=== PATIENT | male | born 1955 | race Caucasian/White ===

== ENCOUNTER 2017-07-14 01:03 | Emergency (ER) | payer MEDICAID, OTHER ==
[2017-07-14] MEDS ORDERED: niCARdipine 20MG In NaCl 20 MG/200 ML BAG ONE (01:32)
[2017-07-14 01:44] LABS: #Eosinphils 0.3 thou/uL (0.0-0.7); #Lymphocytes 2.9 thou/uL (1.20-3.40); #Monocytes 0.4 thou/uL (0.11-0.59); #Neutrophils 3.3 thou/uL (1.40-6.50); %Basophils 0.7 % (0.0-1.0); %Eosinophils 4.3 % (0.0-10.0); %Lymphocytes 41.8 % (21.0-51.0); %Neutrophils 47.2 % (42.0-75.0); Hemoglobin 14.7 g/dL (14.0-18.0); Mean Corpuscular HGB CONC 33.5 g/dL (32.0-36.0); Mean Corpuscular Hemoglobin 31.3 pg (27.0-31.0); Mean Corpuscular Volume 93.6 fl (80.0-94.0); Platelet Count 240 thou/uL (130-400); RBC Distribution Width 13.4 % (11.5-14.5); Red Blood Cell (RBC) Count 4.68 mill/uL (4.70-6.10)
[2017-07-14 02:06] LABS: ALT (SGPT) 29 U/L (8-55); AST (SGOT) 24 U/L (5-34); Alkaline Phosphatase 68 U/L (40-150); Anion Gap 7 mmol/L (10-20); BUN (Urea Nitrogen) 18 mg/dL (8.4-25.7); Bilirubin, Total 0.2 mg/dL (0.2-1.2); CK (CPK) 122 U/L (30-200); Calc. Creatinine Clearance 0 mL/min (70-130); Calcium 9.5 mg/dL (7.8-10.44); Carbon Dioxide 30 mmol/L (22-29); Chloride 103 mmol/L (98-107); Estimated GFR-MDRD 57; Globulin 4.2 g/dL (2.4-3.5); Glucose 130 mg/dL (70-105); Potassium 3.9 mmol/L (3.5-5.1); Protein, Total 8.2 g/dL (6.0-8.3); Sodium 136 mmol/L (136-145)
[2017-07-14 02:09] LABS: CKMB 2.9 ng/mL (0-6.6); Troponin I Less than 0.010 ng/mL (< 0.028)
--- NOTE | 2017-07-14 02:40 | PDOC.FPRHP ---
- History of Present Illness Chief Complaint: Chest Pain History of Present Illness: Pt seen on 07/14 @ 0315 61 yo M w subjective cardiac hx including 14 stents, 1 CT, and "strokes" in addition to bipolar disorder, schizophrenia and HTN presents with 1 day h/o of episodic chest pain which he describes as sharp substernal and radiating to the left arm with associated SOB, diaphoresis and numbness in left arm. In the ED he was found to have elevated BP @ 231/131. Pt reports that is about what he normally runs and has run as high as 300 systolic in the past. He states he is on numerous BP medications and has had numerous catheterizations and stress tests in the past. He states he can no longer get stress tests because "[he] three times" last time they did a cardiac stress. On review of records, pt had a cath in 2006 which showed mild to moderate disease. Prior to the cath the pt had a stress test performed and he began complaining of severe chest pain at that time. After, the pt was taken to cath and found to have mild to moderate cad and the cp was thought to be non-cardiac in nature. There is no record of cardiac stents from review of records in 2007. Heart score 6. Unknown current medications and dosages. ED Course: 4mg IV morphine 324mg Aspirin Cardene drip @ 5mg/hr - Allergies/Adverse Reactions Allergies Allergy/AdvReac Type Severity Reaction Status Date / Time No Known Drug Allergies Allergy Verified 07/14/17 03:35 - Home Medications Medication Instructions Recorded Confirmed Type No Known [No Known] 07/14/17 07/14/17 History - History PMHx: Prior CVA, prior CT, HTN, bipolar, schizophrenia PSHx: None FHx: Paternal DMII Social: >50 pack year history, prior alcohol, prior drug use - Review of Systems General: denies: fever/chills, night sweats Eyes: reports: vision changes. denies: eye pain ENT: denies: nasal congestion, rhinorrhea Respiratory: reports: shortness of breath. denies: cough, congestion Cardiovascular: reports: chest pain. denies: palpitation, edema Gastrointestinal: reports: nausea. denies: vomiting, diarrhea, constipation, abdominal pain Genitourinary: reports: polyuria. denies: dysuria Skin: denies: rashes, jaundice Musculoskeletal: denies: pain, swelling, arthritis/arthralgias Neurological: reports: numbness, weakness, other (pre-syncope). denies: syncope - Vital signs BP: 231/131 HR: 69 RR: 22 Tmax: 98.4 Pox: 96% on RA Wt: 94Kg - Physical Exam Constitutional: NAD, awake, alert and oriented HEENT: normocephalic and atraumatic, PERRLA, EOMI, no scleral icterus, grossly normal vision, MMM, oropharynx clear, other (conjunctival injection, deaf lt ear ) Neck: supple, trachea midline, no LAD, no JVD, no thyromegaly, no bruits Chest: other (ttp left sternal border) Heart: RRR, normal S1/S2, no murmurs/rubs/gallops, pulses present, no edema Lungs: CTAB, no respiratory distress, good air movement, no rales/rhonchi, no wheezing, no retractions Abdomen: soft, non-tender, bowel sounds present, no masses/distention Musculoskeletal: normal tone, ROM grossly normal Neurological: no focal deficit Skin: good turgor, capillary refill <2 seconds, no jaundice Heme/Lymphatic: no purpura, no petechia Psychiatric: other (agitated, poor judgement) FMR H&P: Results - Labs Result Diagrams: 07/14/17 01:25 07/14/17 01:25 Lab results: WBC 7.0 thou/uL (4.8-10.8) 07/14/17 01:25 Hgb 14.7 g/dL (14.0-18.0) 07/14/17 01:25 Hct 43.8 % (42.0-52.0) 07/14/17 01:25 MCV 93.6 fl (80.0-94.0) 07/14/17 01:25 Plt Count 240 thou/uL (130-400) 07/14/17 01:25 Neutrophils % 47.2 % (42.0-75.0) 07/14/17 01:25 Sodium 136 mmol/L (136-145) 07/14/17 01:25 Potassium 3.9 mmol/L (3.5-5.1) 07/14/17 01:25 Chloride 103 mmol/L (98-107) 07/14/17 01:25 Carbon Dioxide 30 mmol/L (22-29) H 07/14/17 01:25 BUN 18 mg/dL (8.4-25.7) 07/14/17 01:25 Creatinine 1.29 mg/dL (0.6-1.3) 07/14/17 01:25 Glucose 130 mg/dL (70-105) H 07/14/17 01:25 Calcium 9.5 mg/dL (7.8-10.44) 07/14/17 01:25 Total Bilirubin 0.2 mg/dL (0.2-1.2) 07/14/17 01:25 AST 24 U/L (5-34) 07/14/17 01:25 ALT 29 U/L (8-55) 07/14/17 01:25 Alkaline Phosphatase 68 U/L (40-150) 07/14/17 01:25 Creatine Kinase 122 U/L (30-200) 07/14/17 01:25 CK-MB (CK-2) 2.9 ng/mL (0-6.6) 07/14/17 01:25 B-Natriuretic Peptide 24.4 pg/mL (0-100) 07/14/17 01:25 Serum Total Protein 8.2 g/dL (6.0-8.3) 07/14/17 01:25 Albumin 4.0 g/dL (3.5-5.0) 07/14/17 01:25 Laboratory Tests 07/14/17 01:25 Troponin I Less than 0.010 - EKG Interpretation EKG: First degree block, non-specific st changes, rate 74 - Radiology Interpretation Chest x-ray Status: image reviewed by me (No widening of mediastinum. NAD.) FMR H&P: A/P - Problem List (1) Hypertensive urgency Current Visit: Yes Status: Acute Code(s): I16.0 - HYPERTENSIVE URGENCY (2) Chest pain, atypical Current Visit: Yes Status: Acute Code(s): R07.89 - OTHER CHEST PAIN - Plan 1) HTN Urgency: - admit to ICU - cont cardene drip, titrate to pressure <160/110 - continuous cardiac monitoring - NPO - Consult cardiology in AM - Initial trop negative, will trend X3 2) Atypical chest pain, suspected - vs unstable angina - Intial troponin was negative and pt has had symptoms for over 1 day that are episodic. Additionally, pt is ttp @ left sternal border. EKG negative for ST elevation, he reports no relief with nitro and according to his niece has several BP readings in that range when taken at home. Additionally, pt still reports 9/10 pain while resting comfortably in bed, not diaphoretic and has a history of drug seeking behavior from prior documents. Based on this, will hold off on anticoag use until we discuss with cardiology in the AM. 3) Tobacco abuse - nicotine patch - no desire to quit and states he will not quit Disposition/LOS: guarded, >/= 2 days symptomatic meds will be provided FMR H&P: Upper Level - Plan Date/Time: 07/14/17 0237 I, [], have evaluated this patient and agree with findings/plan as outlined by engineer internship resident. Pertinent changes/additions are listed here.
[2017-07-14] MEDS ORDERED: Acetaminophen 325 MG TAB PO PRN (04:09)
[2017-07-14] MEDS ORDERED: Nitroglycerin 0.4 MG TAB (25 Tab Bottle) PO PRN (04:09)
[2017-07-14] MEDS ORDERED: Ondansetron HCl/PF 4 MG/2 ML Vial IVP PRN (04:09)
[2017-07-14] MEDS ORDERED: Ondansetron ODT 4 MG TAB PO PRN (04:09)
--- NOTE | 2017-07-14 08:30 | RAD ---
PORTABLE CHEST 1 VIEW: Date: 07/14/17 Time: 0130 hours HISTORY: Chest pain. Hypertension. FINDINGS/IMPRESSION: Comparison made with exam of 03/27/08. The heart size is normal. No confluent areas of consolidation, pneumothoraces, stefan pulmonary edema, or large effusions are seen. POS: [facility]
[2017-07-14] MEDS ORDERED: Famotidine/PF 20 mg/2ml Vial SLOW IVP SCH (09:00)
[2017-07-14] MEDS ORDERED: Enoxaparin Sodium 40 MG/0.4 ML SYRINGE SC SCH (09:00)
[2017-07-14] MEDS ORDERED: Nicotine 14 MG PATCH TD SCH (09:00)
[2017-07-14] MEDS ORDERED: Aspirin 325 MG TAB PO SCH (09:00)
--- NOTE | 2017-07-20 15:36 | EKG ---
Test Reason : Blood Pressure : / mmHG Vent. Rate : 060 BPM Atrial Rate : 060 BPM P-R Int : 220 ms QRS Dur : 092 ms QT Int : 384 ms P-R-T Axes : 072 -26 040 degrees QTc Int : 384 ms Sinus rhythm with 1st degree A-V block Nonspecific T wave abnormality Abnormal ECG Confirmed by PAULA VIVEROS, CECY Mendoza ([id number]), map editor TERELL LINO ([id number]) on 07/20/2017 3:36:33 PM Referred By: Confirmed By:CECY MITCHELL MD
== END 2017-07-14 04:15 | disposition left against medical advice (07) ==
LOC: ERS 01:03
DX: I10 Essential (primary) hypertension (principal); I25.2 Old myocardial infarction; F41.9 Anxiety disorder, unspecified; F31.9 Bipolar disorder, unspecified; F20.9 Schizophrenia, unspecified; F43.10 Post-traumatic stress disorder, unspecified; F17.200 Nicotine dependence, unspecified, uncomplicated; Z79.82 Long term (current) use of aspirin; Z79.899 Other long term (current) drug therapy; Z79.891 Long term (current) use of opiate analgesic
CPT/HCPCS: 71045; 80053; 82553; 83880; 84484; 85025; 93005; 96365; 96366; 96374; 99406; J2270

== ENCOUNTER 2017-08-14 04:51 | Observation (INO) | payer OTHER ==
[2017-08-14] MEDS ORDERED: Nitroglycerin 2% Ointment 1 INCH/1 GM Packet ONE (05:27)
[2017-08-14 05:30] LABS: #Basophils 0.1 thou/uL (0.0-0.2); #Eosinphils 0.3 thou/uL (0.0-0.7); #Lymphocytes 1.9 thou/uL (1.20-3.40); #Monocytes 0.6 thou/uL (0.11-0.59); #Neutrophils 5.2 thou/uL (1.40-6.50); %Basophils 0.9 % (0.0-1.0); %Eosinophils 3.5 % (0.0-10.0); %Lymphocytes 23.7 % (21.0-51.0); %Monocytes 7.6 % (0.0-10.0); %Neutrophils 64.3 % (42.0-75.0); Hemoglobin 15.5 g/dL (14.0-18.0); Mean Corpuscular HGB CONC 32.7 g/dL (32.0-36.0); Mean Corpuscular Hemoglobin 30.6 pg (27.0-31.0); Mean Corpuscular Volume 93.5 fl (80.0-94.0); Mean Platelet Volume 7.3 fL (7.4-10.4); Platelet Count 295 thou/uL (130-400); RBC Distribution Width 13.8 % (11.5-14.5); Red Blood Cell (RBC) Count 5.06 mill/uL (4.70-6.10)
[2017-08-14 05:33] LABS: Digoxin Less than 0.15 ng/mL (0.8-2.0)
[2017-08-14 05:34] LABS: ALT (SGPT) 27 U/L (8-55); AST (SGOT) 21 U/L (5-34); Albumin 4.2 g/dL (3.5-5.0); Alkaline Phosphatase 85 U/L (40-150); Anion Gap 15 mmol/L (10-20); BUN (Urea Nitrogen) 21 mg/dL (8.4-25.7); Bilirubin, Total 0.4 mg/dL (0.2-1.2); Calc. Creatinine Clearance 0 mL/min (70-130); Calcium 10.2 mg/dL (7.8-10.44); Carbon Dioxide 22 mmol/L (22-29); Chloride 104 mmol/L (98-107); Estimated GFR-MDRD 53; Globulin 4.6 g/dL (2.4-3.5); Glucose 160 mg/dL (70-105); Lipase 12 U/L (8-78); Potassium 4.1 mmol/L (3.5-5.1); Protein, Total 8.8 g/dL (6.0-8.3); Sodium 137 mmol/L (136-145)
[2017-08-14 05:37] LABS: CKMB 2.1 ng/mL (0-6.6); Troponin I Less than 0.010 ng/mL (< 0.028)
[2017-08-14] MEDS ORDERED: Amlodipine 5 MG TAB ONE (06:48)
[2017-08-14] MEDS ORDERED: Morphine 4 MG/ML VIAL ONE ×2 (07:24→13:49)
--- NOTE | 2017-08-14 08:15 | RAD ---
CHEST ONE VIEW: History: Emergency Exam. Chest pain, hypertension. Comparison: 07-14-17 FINDINGS: Lungs are clear. No pneumothorax or effusion. Cardiac silhouette and mediastinal contours are within normal limits. Focal atelectasis in the left lung base. IMPRESSION: No acute intrathoracic abnormality. POS: [facility]
[2017-08-14] MEDS ORDERED: Ondansetron HCl/PF 4 MG/2 ML Vial ONE (09:11)
[2017-08-14] MEDS ORDERED: hydrALAZINE 20 MG/ML VIAL ONE (09:58)
[2017-08-14 10:14] LABS: Troponin I 0.012 ng/mL (< 0.028)
[2017-08-14] MEDS ORDERED: Acetaminophen 500 MG TAB ONE (10:34)
[2017-08-14] MEDS ORDERED: Lorazepam 2 MG/ML VIAL ONE (12:36)
[2017-08-14 13:24] LABS: Troponin I Less than 0.010 ng/mL (< 0.028)
[2017-08-14 15:11] VITALS: BMI 28.7
[2017-08-14] MEDS ORDERED: Ondansetron HCl/PF 4 MG/2 ML Vial IVP PRN (16:48)
[2017-08-14] MEDS ORDERED: traMADol HCl 50 MG TAB PO PRN ×2 (16:53→21:13)
[2017-08-14] MEDS ORDERED: Carvedilol 3.125 MG TAB PO SCH (17:00)
[2017-08-14] MEDS ORDERED: Sodium Chloride 0.9% 1,000 ML IV SCH (17:00)
[2017-08-14] MEDS ORDERED: Acetaminophen 650 MG/20.3 ML UDCUP PO PRN (17:22)
[2017-08-14] MEDS ORDERED: Morphine 5 MG/ML SYRINGE SLOW IVP PRN (18:20)
[2017-08-14] MEDS ORDERED: Communication Order-Pharmacy FS SCH (18:30)
[2017-08-14] MEDS ORDERED: Clopidogrel Bisulfate 300 MG TAB PO SCH (18:30)
[2017-08-14] MEDS ORDERED: Amlodipine 5 MG TAB PO SCH (18:45)
[2017-08-14 18:58] VITALS: BP 173/93; TEMP 97.7
[2017-08-14] MEDS ORDERED: Atorvastatin Calcium 10 MG TAB PO SCH (21:00)
[2017-08-14] MEDS ORDERED: PROVENTIL INHALER 6.7 G (200 INHALATIONS) INH PRN (21:13)
[2017-08-14] MEDS ORDERED: Naproxen 500 MG TAB PO PRN (21:13)
[2017-08-14] MEDS ORDERED: PRAZOSIN HCL 5 MG PO PRN (21:13)
[2017-08-14] MEDS ORDERED: HYDROcodone/Acetaminophen 10/325 mg Tablet PO PRN (21:13)
[2017-08-14] MEDS ORDERED: PRAZOSIN HCL 2 MG PO PRN (21:13)
[2017-08-14] MEDS ORDERED: traZODone HCl 50 MG TAB PO PRN (21:13)
[2017-08-14] MEDS ORDERED: Acetaminophen/Codeine 30-300mg Tablet PO PRN (21:13)
[2017-08-14] MEDS ORDERED: Cyanocobalamin 1000 MCG/ML VIAL IM SCH (21:15)
[2017-08-14] MEDS ORDERED: Nitroglycerin 2% Ointment 1 INCH/1 GM Packet TOP SCH (22:00)
[2017-08-15] MEDS ORDERED: Diazepam 5 MG TAB PO SCH (06:00)
[2017-08-15] MEDS ORDERED: Metoprolol Tartrate 100 MG TAB PO SCH (08:00)
--- NOTE | 2017-08-15 08:37 | CON ---
DATE OF CONSULTATION: 08/14/2017 CARDIOLOGY CONSULTATION REASON FOR CONSULTATION: Chest pain. HISTORY OF PRESENT ILLNESS: Mr. Thomas is a 61-year-old male. He was previously seen here and evalu ated by Dr. Jackson, that was done many years ago. The patient did undergo cardiac catheterization in 04/2007, at that time was found to have LAD with a 70% distal stenosis at the apex, circumflex nor mal, right coronary normal, caliber vessel with a 20% plaque. Patient states he underwent cardiac ca theterization he thinks in [place]. He thinks it about 2010, he does not know other result of that. He thinks, he may have had some stents. He told in earlier exam noted that he had "fourteen stents" but then later, he told me he has not had any stents put in as far as he knows, but he is unsure. The patient has been having increasing amounts of chest pain most of it is atypical for angina, left upper chest, left lower chest laterally, but also some pressure in his chest intermittently. The pat ient still having sharp chest pain, left upper chest and left lower chest laterally that do not sound cardiac in origin. SOCIAL HISTORY: He continues to smoke said he was smoking 3 packs of cigarettes per day. Now he is "down to half pack a day and he is really trying to quit." He said he is unable to read or write. Davey mcdonnell smokes as outlined above. MEDICATIONS: At home, he is unable to tell me any of his medications, he said "I take a lot of medic lalita" but he cannot tell me any of them. Medications here, he is on carvedilol, aspirin, and nitro paste. ALLERGIES: INFLUENZA VACCINE. REVIEW OF SYSTEMS: Constitutional: No significant weight gain or loss. Vision: No changes. Heari ng: No changes. Pulmonary: No cough or wheezing. Gastrointestinal: No nausea, vomiting, diarrhea . Skin: No rashes. Neurologic: No unilateral weakness or numbness. Psychiatric: No unusual depr ession or anxiety. Hematologic: No unusual bruising. Genitourinary: No burning with urination. M usculoskeletal: No unusual joint pains. PHYSICAL EXAMINATION: GENERAL: This is a 61-year-old gentleman, looks older than his chronologic age. His blood pressure 176/95, pulse 70. HEENT: Sclerae nonicteric. Mouth mucous moist. NECK: Supple, no lymphadenopathy. LUNGS: Clear. No wheezing, rales, or rhonchi. CARDIAC: Normal S1, normal S2. There is no murmur, rub, or gallop. ABDOMEN: Soft, nontender. EXTREMITIES: No clubbing or cyanosis. There is no edema. Good peripheral pulses. LABORATORY AND X-RAY FINDINGS: EKG did not show any ischemic changes. Troponin levels were all norm al. ASSESSMENT: 1. Chest pain of various locations, most of which sounds atypical for pain. He has occasional press ure in his chest as well, however. 2. History of "my heart stopping after stress testing in the past." He says he cannot undergo stres s testing due to adverse reactions. 3. Coronary artery disease. 4. Continue smoking. 5. Unknown cholesterol status. 6. Hypertension. PLAN: 1. Continue aspirin. 2. Check lipid profile. 3. Would recommend repeating cardiac catheterization. Discussed risks of stroke, heart attack, loss of blood supply to the leg or kidney, risk of stenting including emergency bypass surgery, stent thr ombosis, and restenosis all discussed. He understands and wished to proceed.
[2017-08-15] MEDS ORDERED: Spironolactone 25 MG TAB PO SCH (09:00)
[2017-08-15] MEDS ORDERED: Mupirocin 2% Ointment 22 GM Tube TOP SCH (09:00)
[2017-08-15] MEDS ORDERED: Aspirin 81 mg Enteric Coated Tablet PO SCH (09:00)
[2017-08-15] MEDS ORDERED: Venlafaxine HCl XR 75 MG CAP PO SCH (09:00)
[2017-08-15] MEDS ORDERED: Gabapentin 300 MG CAP PO SCH (09:00)
[2017-08-15] MEDS ORDERED: Lorazepam 1 MG TAB PO SCH (09:00)
[2017-08-15] MEDS ORDERED: guaiFENesin ER 600 MG TAB PO SCH (09:00)
[2017-08-15] MEDS ORDERED: cloNIDine 0.3 MG TAB PO SCH (09:00)
[2017-08-15] MEDS ORDERED: Amlodipine 10 MG TAB PO SCH (09:00)
[2017-08-15] MEDS ORDERED: Amlodipine 5 MG TAB PO SCH (09:00)
[2017-08-15] MEDS ORDERED: Venlafaxine HCl XR 150 MG CAP PO SCH (09:00)
--- NOTE | 2017-08-15 15:27 | HP ---
CHIEF COMPLAINT: Chest pain. HISTORY OF PRESENT ILLNESS: This is a 61-year-old male with a history of alcohol use, hypertension, prior coronary artery disease, who presented with a chief complaint of chest pain that occurred while at rest. He states he has had similar chest pain in the past and he states that he has had 14 stents in his heart due to heart disease. The patient denies any episodes of nausea, vomiting, diaphoresis, or shortness of breath, particularly with this episode. However, patient has been endorsing a sequential progression of worsening shortness of breath with exertion. REVIEW OF SYSTEMS: Other than that is positive in the HPI, otherwise negative. PAST MEDICAL HISTORY: As per HPI, includes the followin. Hypertension. 2. Active tobacco use. 3. History of coronary artery disease with multiple PCIs in the past. 4. CVA. 5. Status post skin resection for cancer. HOME MEDICATIONS: As per EMR list has included the following, lorazepam, hydrocodone/acetaminophen, albuterol sulfate, naproxen, prazosin, spironolactone , tramadol, venlafaxine, trazodone, clonidine, cyanocobalamin, acetaminophen with codeine, guaifenesin, gabapentin, metoprolol, amlodipine, and venlafaxine. ALLERGIES: He is allergic to the INFLUENZA VIRUS VACCINE, unknown reaction. FAMILY HISTORY: The patient does not recall a known family history of any other disease for me. SOCIAL HISTORY: Continued tobacco use with a pack of cigarettes lasting him about 2-3 days. Denies any alcohol or illicit drug use. Thus, he wishes to be a FULL CODE at this point in time. PHYSICAL EXAMINATION: GENERAL: The patient is awake, alert. HEENT: Normocephalic, atraumatic. Extraocular motions are intact, moist mucous membranes. CARDIOVASCULAR: S1, S2. Pulses 2+ bilateral upper extremities, no pitting pedal edema. RESPIRATORY: No conversational dyspnea. LUNGS: Clear to auscultation without wheezes, rales, or rhonchi. ABDOMEN: Positive bowel sounds, soft, nontender to palpation. LABORATORY DATA AND IMAGING: WBC 8.0, hemoglobin 15.5, hematocrit 47.3, platelets 295. Sodium 137, potassium 4.1, chloride 104, bicarbonate 22, BUN 21 , creatinine 1.37, glucose 160, calcium 10.2, total bilirubin 0.4, AST 21, ALT 27, alkaline phosphatase 85. Creatine kinase 146. Initial troponin less than 0.01, followed by 0.012. BNP 17.4, total protein 8.8, albumin of 4.2. Digoxin level less than 0.15. ASSESSMENT AND PLAN: A 61-year-old male presents with a chief complaint of chest pain in the setting of known coronary artery disease. We will admit the patient to observation, trend troponins, maintain telemetry monitoring, and consult Cardiology given his known prior cardiac history and his active risk factors places him at a higher risk for acute coronary syndrome. Thank you for asking me to care for the patient and admit to observation telemetry. THALIA
--- NOTE | 2017-08-26 15:46 | EKG ---
Test Reason : Blood Pressure : / mmHG Vent. Rate : 070 BPM Atrial Rate : 070 BPM P-R Int : 186 ms QRS Dur : 084 ms QT Int : 392 ms P-R-T Axes : 022 -29 009 degrees QTc Int : 423 ms Normal sinus rhythm Normal ECG Confirmed by TRVEOR GATES M.D. ([id number]), avid editor RACHEL PATEL ([id number]) on 08/26/2017 3:46:18 PM Referred By: Confirmed By:TREVOR GATES M.D.
--- NOTE | 2017-08-26 16:03 | EKG ---
Test Reason : Blood Pressure : / mmHG Vent. Rate : 071 BPM Atrial Rate : 071 BPM P-R Int : 180 ms QRS Dur : 088 ms QT Int : 366 ms P-R-T Axes : 022 -28 125 degrees QTc Int : 397 ms Normal sinus rhythm Minimal voltage criteria for LVH, may be normal variant Nonspecific T wave abnormality No STEMI Abnormal ECG Confirmed by YAJAIRA Dougherty, TREVOR ([id number]), magazine editor RACHEL PATEL ([id number]) on 08/26/2017 4:03:24 PM Referred By: Confirmed By:TREVOR GATES M.D.
--- NOTE | 2017-09-21 23:51 | DIS ---
PRIMARY DISCHARGE DIAGNOSIS: Chest pain, undifferentiated. BRIEF SUMMARY OF HOSPITAL COURSE: The patient was admitted for chest pain and he left against medica l advice before further evaluation of his chief complaint. Thank you for asking me care for the patient.
== END 2017-08-14 21:28 | disposition left against medical advice (07) ==
LOC: ERS 04:51 → ERHOLD 09:15 → 2SW 14:50
PROVIDERS: ADMIT Internal Medicine; ATTEND Internal Medicine
DX: R07.89 Other chest pain (principal); F17.210 Nicotine dependence, cigarettes, uncomplicated; I25.10 Atherosclerotic heart disease of native coronary artery without angina pectoris; I10 Essential (primary) hypertension; Z88.7 Allergy status to serum and vaccine; Z79.82 Long term (current) use of aspirin; Z79.52 Long term (current) use of systemic steroids; Z79.899 Other long term (current) drug therapy
CPT/HCPCS: 36415; 36416; 71045; 80053; 80162; 82550; 82553; 83690; 83880; 84484; 85025; 93005; 96361; 96374; 96375; 96376; J2270; J0360; J2060; J2405